=== PATIENT | female | born 1980 | race Two or more races ===

== ENCOUNTER 2016-11-26 13:43 | Emergency (ER) | payer MEDICAID, OTHER ==
[~2016-11-26] VITALS: Ht 157.5 cm; Wt 82.0 kg
[2016-11-26] MEDS ORDERED: KETOROLAC 30MG/ML VIAL IV STA (15:07)
[2016-11-26] MEDS ORDERED: ONDANSETRON HCL 4MG/2ML VIAL IV STA (15:07)
[2016-11-26] MEDS ORDERED: SODIUM CHLORIDE 0.9% 1,000 ML IV ONE (15:07)
[2016-11-26] MEDS ORDERED: MORPHINE SULFATE 4 MG/ML CPJ (NOT FOR IM USE) IV STA (15:07)
[2016-11-26 15:31] LABS: BASOPHILS % 1.4 % (0.0-2.0); DIFFERENTIAL COMMENT 0; EOSINOPHILS % 1.3 % (0.0-5.0); HEMATOCRIT. 28.6 % (36.0-48.0); HEMOGLOBIN. 9.1 g/dL (12.0-16.0); LYMPHOCYTES % 35.4 % (20.0-50.0); MEAN CORPUSCULAR HEMOGLOBIN 25.3 pg (28.0-32.0); MEAN CORPUSCULAR HGB CONC 31.8 g/dL (31.0-37.0); MEAN CORPUSCULAR VOLUME 79.4 fL (81.0-99.0); MEAN PLATELET VOLUME 7.7 fl (7.4-10.4); MONOCYTES % 5.9 % (2.0-8.0); PLATELET 390 x1000/uL (130-400); RED CELL DISTRIBUTION WIDTH 16.5 % (11.6-14.6); WHITE BLOOD COUNT 6.5 x1000/uL (4.5-11.0)
[2016-11-26 15:39] LABS: INR 1.2; PROTHROMBIN TIME 12.4 sec
[2016-11-26 15:46] LABS: HCG SCREEN NEGATIVE
[2016-11-26 15:48] LABS: ALANINE AMINOTRANSFERASE 9 IU/L (13-61); ALBUMIN 2.9 g/dL (3.4-5.0); ANION GAP 12; CALCIUM 8.1 mg/dL (8.5-10.1); CARBON DIOXIDE 27 mEq/L (21-32); CHLORIDE 106 mEq/L (98-107); CREATINE KINASE 22 IU/L (26-192); ETHANOL BLOOD < 10 mg/dL; INDEX HEMOLYSI 1 (1-3); INDEX ICTERIC 1 (1-4); INDEX LIPEMIC 1 (1-3); TROPONIN I < 0.02 ng/mL (0.00-0.04); UREA NITROGEN BLOOD 14 mg/dL (7-21); eGFR > 60 mL/min (>60)
[2016-11-26 17:50] VITALS: BP 108/62
== END 2016-11-26 18:10 | disposition home or self-care (01) ==
LOC: ER 14:25
DX: R51 Headache (principal); H53.8 Other visual disturbances
CPT/HCPCS: 36415; 70450; 71010; 80053; 82550; 82962; 84443; 84484; 84703; 85025; 85610; 85651; 93005; 96374; 96375; 99285; G0482; J1885; J2270; J2405; J7030; Z7610